=== PATIENT | female | born 1985 | race Asian ===

== ENCOUNTER 2017-03-04 10:51 | Inpatient (IN) | payer SELFPAY ==
[~2017-03-04] VITALS: Ht 167.6 cm; Wt 71.7 kg
[2017-03-06] MEDS ORDERED: FERR-252 PO (04:46)
[2017-03-06] MEDS ORDERED: PREN1SGL25 PO (04:46)
[2017-03-06] MEDS ORDERED: PROMETHAZINE 25 MG/ML VIAL IVP PRN (04:50)
[2017-03-06] MEDS ORDERED: CARBOPROST 250 MCG/ML AMP IM PRN (04:50)
[2017-03-06] MEDS ORDERED: METHYLERGONOVINE 0.2 MG/ML AMP IM PRN ×2 (04:50→16:50)
[2017-03-06] MEDS ORDERED: OXYTOCIN 10 UNITS/ML VIAL IM SCH (04:50)
[2017-03-06] MEDS ORDERED: NALBUPHINE HYDROCHLORIDE 10 MG/ML VIAL IVP PRN (04:50)
[2017-03-06 05:15] LABS: BASOPHILS # (AUTO) 0.3 K/uL (0.00-0.22); EOSINOPHILS # (AUTO) 0.1 K/uL (0-0.4); EOSINOPHILS % (AUTO) 0.9 % (0.0-4.0); HEMATOCRIT 35.8 % (36-48); HEMOGLOBIN 11.9 g/dL (12.0-16.0); LYMPHOCYTES # (AUTO) 1.8 K/uL (2.5-16.5); MEAN CORPUSCULAR HEMOGLOBIN 30 pg (27-31); MEAN CORPUSCULAR HGB CONC 33 g/dL (33-37); MEAN CORPUSCULAR VOLUME 91 fL (80-94); MONOCYTES # (AUTO) 0.8 K/uL (0.8-1.0); MONOCYTES % (AUTO) 8.5 % (1.7-9.3); NEUTROPHILS # (AUTO) 6.2 K/uL (1.8-7.7); NEUTROPHILS % (AUTO) 67.6 % (42.2-75.2); PLATELET COUNT (AUTO) 238 K/uL (140-450); RED BLOOD CELL COUNT(AUTO) 3.95 MIL/uL (4.20-5.40); RED CELL DISTRIBUTION WIDTH 12.7 % (11.6-13.7); WHITE BLOOD COUNT (AUTO) 9.2 K/uL (4.8-10.8)
[2017-03-06 05:25] LABS: ANION GAP 12.5 (8-16); CARBON DIOXIDE 25.1 mmol/L (21-32); CREATININE 0.6 mg/dL (0.6-1.3); POTASSIUM 3.6 mmol/L (3.5-5.1)
[2017-03-06 05:31] LABS: ALBUMIN 2.9 g/dL (3.4-5.0); TOTAL BILIRUBIN 0.2 mg/dL (0.0-1.0)
[2017-03-06] MEDS: LACTATED RINGERS 1,000 ML IV SCH ×4 (05:55→13:00)
[2017-03-06] MEDS ORDERED: BUPIVACAINE 0.125%/NS PREMIX 250 ML ONE (06:07)
[2017-03-06 07:29] VITALS: BP 106/62
[2017-03-06] MEDS ORDERED: AMPICILLIN 2,000 MG in NACL 0.9% MINI-BAG PLUS 100 ML IV SCH (08:15)
[2017-03-06] MEDS ORDERED: OXYTOCIN 20 UNITS in LACTATED RINGERS 1,000 ML IV SCH (08:25)
[2017-03-06] MEDS ORDERED: AMPICILLIN 2,000 MG VIAL ONE (08:25)
--- NOTE | 2017-03-06 10:47 | NUR ---
PATIENT HAS BEEN SCREENED AND CATEGORIZED LOW NUTRITION RISK. PATIENT WILL BE SEEN WITHIN 7 DAYS OF ADMISSION. 03/12/[address]
[2017-03-06] MEDS ORDERED: TERBUTALINE 1 MG/ML VIAL SUBQ ONE (11:24)
[2017-03-06] MEDS ORDERED: TERBUTALINE 2.5 MG TAB ONE (11:24)
[2017-03-06 11:29] LABS: APPEARANCE,URINE CLEAR (CLEAR); BILIRUBIN,URINE NEGATIVE (NEGATIVE); BLOOD, URINE TRACE-I (NEGATIVE); COLOR,URINE YELLOW (YELLOW); LEUKOCYTE ESTERASE ,URINE TRACE (NEGATIVE); NITRITE, URINE NEGATIVE (NEGATIVE); UGLUCOSE TRACE (NEGATIVE)
[2017-03-06] MEDS ORDERED: TERBUTALINE 1 MG/ML VIAL SUBQ STA (11:40)
[2017-03-06 11:53] LABS: RBC,URINE 0-5 (RARE) /HPF (0-5); WBC,URINE 0-5 (RARE) /HPF (0-5)
[2017-03-06] MEDS ORDERED: AMPICILLIN 1,000 MG in NACL 0.9% MINI-BAG PLUS 50 ML IV SCH (12:00)
[2017-03-06] MEDS ORDERED: AMPICILLIN 1,000 MG VIAL ONE (13:16)
[2017-03-06] MEDS ORDERED: OXYTOCIN 10 UNITS/ML VIAL ONE (16:19)
[2017-03-06] MEDS ORDERED: OXYTOCIN 10 UNITS/ML VIAL IM PRN (16:50)
[2017-03-06] MEDS ORDERED: IBUPROFEN 800 MG TAB PO PRN (16:50)
[2017-03-06] MEDS ORDERED: oxyCODONE/APAP 5/325 MG 1 TAB TAB PO PRN (16:50)
[2017-03-06] MEDS ORDERED: TEMAZEPAM 15 MG CAP PO PRN (16:50)
[2017-03-06] MEDS ORDERED: MEASLES, MUMPS, AND RUBELLA 1 VIAL SQVAC PRN (16:50)
[2017-03-06] MEDS ORDERED: HYDROcodone/APAP 5/325 MG 1 TAB TAB PO PRN (16:50)
[2017-03-06] MEDS ORDERED: BENZOCAINE/MENTHOL 20%-0.5% 60 GM CAN TP PRN (16:50)
[2017-03-06] MEDS ORDERED: DOCUSATE SOD/SENNA 50/8.6 MG 1 TAB PO SCH (21:00)
[2017-03-07 13:38] LABS: HEMATOCRIT 29.9 % (36-48); HEMOGLOBIN 9.9 g/dL (12.0-16.0)
[2017-03-08] MEDS ORDERED: IBUP-2217 PO (11:48)
== END 2017-03-08 13:00 | disposition home or self-care (01) | DRG 775 ==
LOC: MLD 03-06 03:00 → MFCC 03-06 20:34
PROVIDERS: ADMIT Obstetrics & Gynecology; ATTEND Obstetrics & Gynecology
PROC: 10E0XZZ Delivery of Products of Conception, External Approach (ICD-10-PCS; principal; 2017-03-06)
PROC: 0HQ9XZZ Repair Perineum Skin, External Approach (ICD-10-PCS; 2017-03-06)
PROC: 00HU33Z Insertion of Infusion Device into Spinal Canal, Percutaneous Approach (ICD-10-PCS; 2017-03-06)
PROC: 3E0R3BZ Introduction of Anesthetic Agent into Spinal Canal, Percutaneous Approach (ICD-10-PCS; 2017-03-06)
DX: O77.0 Labor and delivery complicated by meconium in amniotic fluid (principal); O69.81X0 Labor and delivery complicated by cord around neck, without compression, not applicable or unspecified; O70.0 First degree perineal laceration during delivery; Z37.0 Single live birth; Z3A.40 40 weeks gestation of pregnancy
CPT/HCPCS: 36415; 51702; 59409; 80053; 81001; 85018; 85025; 86592; 86886; 86900; 86901; 90715; J0290; J2590; J3105; J3490; J7120